=== PATIENT | female | born 1945 | race Caucasian/White ===

== ENCOUNTER 2016-10-07 09:42 | Outpatient (CLI) | payer MEDICARE, BC ==
[~2016-10-07 09:42] MED LIST: DEMEROL50 MG PO; MEDROL DOSE PACK4 MG PO; NITROSTAT0.4 MG SL; PEPCID20 MG PO; ROBAXIN-750750 MG PO; SOMA350 MG PO; SYNTHROID137 MCG PO
== END 2016-10-07 10:40 ==
LOC: D.MAMMO 09:42
DX: N63 Unspecified lump in breast (principal)

== ENCOUNTER → 2017-06-24 20:52 | Outpatient (CLI) | payer MEDICARE, BC | END | disposition home or self-care (01) | LOC: D.MAMMO 14:00 | DX: R92.8 Other abnormal and inconclusive findings on diagnostic imaging of breast (principal) ==

== ENCOUNTER 2018-06-02 09:10 | Day surgery (SDC) | payer MEDICARE, BC ==
[2018-06-01 10:03] LABS: HEMATOCRIT 43.4 % (36.0-48.0); HEMOGLOBIN 14.8 g/dL (12-16); MCH 32.1 pg (26.0-34.0); MCHC 34.1 g/dL (31.0-37.0); MCV 94.1 fL (80.0-100.0); MEAN PLATELET VOLUME 9.4 fL (7.4-10.4); RBC 4.61 10x6/uL (4.00-5.40); RDW 12.7 % (11.5-14.5)
[~2018-06-02] VITALS: Ht 167.6 cm; Wt 65.8 kg
[~2018-06-02 09:10] MED LIST changes: +CARAFATE1 G PO; +SOMA250 MG PO
[2018-06-02] MEDS ORDERED: PREVACID30 MG PO (10:13)
[2018-06-02 10:19] VITALS: BP 132/63; Ht 167.6 cm; Wt 65.8 kg
--- NOTE | 2018-06-30 17:49 | OP ---
PATIENT NAME: LAILA KRAFT MEDICAL RECORD: [id number] :43 LOCATION:[facility] ADMISSION DATE: SURGEON: AMERICA SANTOS DATE OF OPERATION: 06/02/2018 SURGEON: America Santos DPM PREOPERATIVE DIAGNOSES: 1. Hallux abductovalgus, right foot. 2. Hammertoe, second toe, right foot. 3. Tailor's bunion, right foot. POSTOPERATIVE DIAGNOSES: 1. Hallux abductovalgus, right foot. 2. Hammertoe, second toe, right foot. 3. Tailor's bunion, right foot. PROCEDURES: 1. Angel-Terrence bunionectomy, right foot. 2. Arthrodesis, proximal interphalangeal joint, second toe, right foot. 3. Reverse Angel bunionectomy, fifth metatarsal, right foot. ANESTHESIA: General. HEMOSTASIS: Pneumatic ankle tourniquet inflated to 250 mmHg. ESTIMATED BLOOD LOSS: Minimal. MATERIALS: One 2.5-mm headless Dart-Fire screw, one 9-mm Quick Staple, one 2.5 mm x 20 mm headless Dart-Fire screw, and one 2.0 x 12 mm headed Dart-Fire screw (all [employer]). INJECTABLES: A 32 cc of 0.5% bupivacaine plain. The patient has longstanding history of pain associated with the above-mentioned foot deformities. We have discussed the proposed procedures. Risks and benefits were discussed. Complications were reviewed. All questions were answered. She was appropriately consented for the above-mentioned procedures. DESCRIPTION OF PROCEDURE: The patient was brought into the operating room and placed on the operating table in a supine position. A time-out was called. Dr. Santos identified the patient, the surgical site, and surgery to be performed. Once appropriate anesthesia was obtained, the foot was prepped and draped in the usual aseptic manner. The pneumatic ankle tourniquet was inflated around the well-padded right ankle. PROCEDURE #1: Angel-Terrence bunionectomy, right foot. Attention was directed to the dorsal aspect of the first metatarsophalangeal joint, where a 6-cm linear incision was made just medial to the extensor hallucis longus tendon. This incision was carried deep to soft tissue with care being taken to retract all vital neurovascular structures. All bleeders were cauterized along the way. The first intermetatarsal space was entered through this incision. The conjoined tendon of the adductor hallucis muscle was identified at the base of the proximal phalanx and was sharply transected at this level. Attention was OPERATIVE REPORT [id number] ABENALAILA Edilson then directed further proximally to the level of the fibular sesamoidal ligament. The fibular sesamoidal ligament was then sharply transected with a #15 blade. Attention was then redirected to the dorsal aspect of the joint, where the periosteum was reflected from the first metatarsal head and the base of the proximal phalanx. The head of the first metatarsal was noted to be hypertrophied. Utilizing a sagittal saw, the hypertrophied medial eminence was removed. Next, a V-shaped osteotomy was created in the head of first metatarsal. This was a awzycoi-qdk-tlzsfef osteotomy with the apex oriented distally. The capital fragment was shifted laterally and impacted upon the first metatarsal shaft. Utilizing k 12 principal's recommended technique, one 2.5-mm screw was placed across the osteotomy. All overhanging bone from the medial aspect of the first metatarsal was removed with the bone saw. Attention was then directed to the base of the proximal phalanx, where a V-shaped osteotomy was created in the base of the toe with the apex oriented laterally. The wedge of bone was removed from the osteotomy. The osteotomy was reduced and one Quick Staple was placed across the osteotomy. Surgical site was then irrigated with copious amounts of normal sterile saline via bulb syringe. The periosteum was then reapproximated and coapted using 3-0 Vicryl. The subcutaneous was then reapproximated and coapted using 4-0 Vicryl. The skin was reapproximated and coapted using 4-0 nylon. PROCEDURE #2: Arthrodesis, second toe, right foot. Attention was directed to the dorsal aspect of the second toe of the right foot, where a 4-cm linear incision was made. This incision was carried deep to soft tissue with care being taken to retract all vital neurovascular structures. All bleeders were cauterized along the way. The extensor tendon was transected at the level of the proximal interphalangeal joint, thus exposing the head of the proximal phalanx and the proximal interphalangeal joint. All soft tissue attachments were freed from the head of the proximal phalanx and the head of the proximal phalanx was removed with a sagittal saw. All cartilage was removed from the base of the middle phalanx. Next, utilizing k 12 principal's recommended technique, one 2.5-mm screw was placed across the arthrodesis site. The toe was noted to rest in a more rectus position after placement of the screw. The surgical site was then irrigated with copious amounts of normal sterile saline. The extensor tendon was then reapproximated and coapted using 3-0 Vicryl. The subcutaneous was then reapproximated and coapted using 4-0 Vicryl. The skin was reapproximated and coapted using 4-0 nylon. PROCEDURE #3: Tailor's bunionectomy, right foot. Attention was directed to the lateral aspect of the right foot, where a 5-cm linear incision was made just over the head of the fifth metatarsal. This incision was carried deep to soft tissue with care being taken to retract all vital neurovascular structures. All bleeders were cauterized along the way. The periosteum was then reflected from the head of the fifth metatarsal, thus exposing the hypertrophied lateral eminence. Utilizing the sagittal saw, the hypertrophied bone was removed. Next, a V-shaped osteotomy was created in the head of the fifth metatarsal. This was a fwkbufv-jvf-khbpwig osteotomy with the apex oriented distally. The capital fragment was then shifted medially and impacted upon the fifth metatarsal shaft. OPERATIVE REPORT [id number] LAILA KRAFT Next, utilizing k 12 principal's recommended technique, one 2.5-mm screw was placed across the osteotomy. All remaining overhanging bone from the lateral aspect of the fifth metatarsal shaft was removed with a bone saw. Surgical site was then irrigated with copious amounts of normal sterile saline via bulb syringe. The periosteum was then reapproximated and coapted using 3-0 Vicryl. The subcutaneous was then reapproximated and coapted using 4-0 Vicryl. The skin was reapproximated and coapted using 4-0 nylon. Dressing consisting of Xeroform, 4 x 4's, Kerlix, and Cedric bandage was applied to the surgical sites. The pneumatic ankle tourniquet was deflated and cap refill time was immediate to all digits of the right foot. The patient tolerated the procedure and the anesthesia well. She left the operating with vital signs stable and cap refill time intact. The patient will be discharged home with instructions to ice and elevate the foot. She has a boot to further offload the foot. She has my cell phone number for any afterhours troubles and there were no difficulties with these procedures. We will follow up with her next week. TRANSINT:[id number] Voice Confirmation ID: [id number] DOCUMENT ID: [id number] AMERICA SANTOS at 1749 CC: [id number] DICTATION DATE: 06/02/18 1424 SUPERVISOR COLD ROLLING: 06/02/18 1604 [facility] 06/02/18 [id number] [place] [address]
== END 2018-06-02 17:30 | disposition home or self-care (01) ==
LOC: D.OPS 09:10 → D.PAN 11:30 → D.OPS 11:30
PROVIDERS: Anesthesiology
DX: M20.11 Hallux valgus (acquired), right foot (principal); M20.41 Other hammer toe(s) (acquired), right foot; M21.621 Bunionette of right foot; Z88.5 Allergy status to narcotic agent; Z88.0 Allergy status to penicillin; Z88.2 Allergy status to sulfonamides; Z96.659 Presence of unspecified artificial knee joint; M19.90 Unspecified osteoarthritis, unspecified site; M79.7 Fibromyalgia; Z01.812 Encounter for preprocedural laboratory examination

== ENCOUNTER 2018-11-14 12:39 | Emergency (ER) | payer MEDICARE, BC ==
[~2018-11-14] VITALS: Ht 167.6 cm; Wt 63.6 kg
[~2018-11-14 12:39] MED LIST changes: +PREVACID30 MG PO
[2018-11-14 13:38] LABS: APTT 29.2 SECONDS (22.8-39.4); INR 1.01 (0.85-1.17); PROTIME 12.8 SECONDS (11.6-15.0)
[2018-11-14 13:43] LABS: ALBUMIN 3.7 g/dL (3.4-5.0); ALKALINE PHOSPHATASE 75 U/L (46-116); ALT (SGPT) 41 U/L (10-68); BILIRUBIN - TOTAL 0.32 mg/dL (0.2-1.3); CALC OSMOLALITY 283 mosm/kg (275-300); CALCIUM 8.9 mg/dL (8.5-10.1); CARBON DIOXIDE 28.8 mmol/L (21.0-32.0); CHLORIDE - SERUM 106 mmol/L (98-107); CREATININE - SERUM 1.2 mg/dL (0.6-1.3); GLUCOSE 85 mg/dL (74-106); PROTEIN - SERUM 6.9 g/dL (6.4-8.2); SODIUM 141 mmol/L (136-145); UREA NITROGEN 23 mg/dL (7-18); eGFR NON AFRICAN AMERICAN 46 mL/min (90-120)
[2018-11-14 13:55] LABS: CKMB 4.9 U/L (0.0-3.6); CREATINE KINASE 246 UL (21-215); MAGNESIUM - SERUM 2.1 mg/dL (1.8-2.4)
[2018-11-14 13:56] LABS: BASOPHILS 0.2 % (0-2); EOSINOPHILS 1.9 % (0-7); HEMATOCRIT 42.3 % (36.0-48.0); HEMOGLOBIN 14.7 g/dL (12-16); IMMATURE GRANULOCYTES 0.2 % (0-5); LYMPHOCYTES 18.4 % (15-50); MCHC 34.8 g/dL (31.0-37.0); MEAN PLATELET VOLUME 9.6 fL (7.4-10.4); NEUTROPHILS 74.3 % (40-80); PLATELET COUNT 257 10x3/uL (130-400); RDW 12.5 % (11.5-14.5); WBC 5.2 10x3/uL (4.8-10.8)
[2018-11-14 13:57] LABS: TROPONIN-I < 0.017 ng/mL (0.000-0.060)
[2018-11-14 14:02] VITALS: BP 147/67
[2018-11-14 14:55] VITALS: BP 174/79
--- NOTE | 2018-11-14 16:30 | NUR ---
PT STATES, 'DR COSBY TOLD ME FROM HIS STAND POINT I AM GOOD TO GO HOME" EXPL THE PROCESS THAT SHE IS ADMITTED TO DR FREED. DR HERNANDEZ COVERING FOR DR FREED THIS AFTERNOON. PT STATES "I DONT WANT TO STAY THE NIGHT." EXPL I CAN NOT DISCHARGE HER UNTIL DR HERNANDEZ OR DR FREED DISCHARGE HER. SHE VERB SHE WOULD LEAVE AMA. I CALLED AND SPOKE WITH DR HERNANDEZ AND EXPL ABOVE. DR HERNANDEZ SAYS HE CANNOT COME SEE PT UNTIL HE IS OUT OF CLINIC AROUND 1730 EXPL THIS TO PT AND SHE AGREED TO STAY
[2018-11-14 17:00] VITALS: BP 155/68
--- NOTE | 2018-11-14 18:08 | NUR ---
DR HERNANDEZ AT
[2018-11-14 18:26] VITALS: Ht 167.6 cm; Wt 63.6 kg
[2018-11-14 18:30] VITALS: BP 148/64
--- NOTE | 2018-11-14 18:30 | NUR ---
DISCHARGED IMPROVED. AMB OUT WITH S/O WITH INSTR VERB UNDER
--- NOTE | 2018-11-14 18:39 | CN ---
PATIENT NAME:LAILA BUSCH MEDICAL RECORD: [id number] : 43 LOCATION:[facility] D.2119 ADMIT DATE: 11/14/18 ACCOUNT: [id number] CONSULTING PHYSICIAN: EMA COSBY MD REFERRING PHYSICIAN: DENNIS FREED MD DATE OF CONSULTATION: 11/14/2018 CARDIOLOGY CONSULTATION DIAGNOSES: 1. Chest pain. 2. Gastroesophageal reflux disease. HISTORY OF PRESENT ILLNESS: Mrs. Busch presents with 5 minutes of chest pain, it was quite severe, centered in her mid sternal area. She has a significant history of GERD as well for which she is on Pepcid and Prevacid. She recently has lost 2 children and is under a lot of stress due to that. She had a normal cardiac catheterization a little over 2 years ago. Her EKG is normal. Troponin is normal. PHYSICAL EXAMINATION: GENERAL APPEARANCE: Well-nourished, well-developed, appears stated age. Level of distress, comfortable. PSYCHIATRIC: Mental status, alert, normal affect. Orientation, oriented to time, place and person. EYES: Lids and conjunctiva, noninjected. No discharge, no pallor. ENT: Lips, teeth, gums, normal dentition. Oropharynx, no cyanosis, no pallor. NECK: Carotid arteries, bilateral normal upstroke, no bruits, no thrills. JUGULAR VEINS: No jugular venous pressure or distention. CERVICAL LYMPH NODES: Nontender, nonenlarged. THYROID: Not enlarged. Nontender. No nodules. LUNGS: Respiratory effort, unlabored. CHEST: Normal curvature. No thoracic deformity. No chest wall tenderness. Percussion, resonant. Auscultation, clear. No wheezes, no rales, no rhonchi. CARDIOVASCULAR: Precordial exam, nondisplaced. No heaves or pericardial thrills. Rate and rhythm, regular. Heart sounds, normal S1, normal S2. No S3, no gallop, no rub. Systolic murmur, not heard. Diastolic murmur, not heard. EXTREMITIES: No cyanosis, no edema. Peripheral pulses, full and equal in all extremities, except as noted. No bruits appreciated. ABDOMEN: Soft, nondistended. Normal aorta. No bruit. Nontender. No masses. Liver, nontender, no hepatomegaly. Spleen, nontender, no splenomegaly. MUSCULOSKELETAL: No joint tenderness. No joint swelling. No erythema. NEUROLOGICAL: Normal gait, normal strength, normal tone. SKIN: Warm and dry. OVERALL IMPRESSION: Chest pain with history of GERD, normal cardiac catheterization little over 2 years ago with a normal EKG, normal troponin. This is not cardiac. No other cardiac workup or treatment testing needs to be undertaken at this time. TRANSINT:[id number] Voice Confirmation ID: [id number] DOCUMENT ID: [id number] CONSULT REPORT [id number] LAILA BUSCH, EMA LLOYD at 1839 CC: [id number] DICTATION DATE: 11/14/18 1543 HAMMER ADJUSTER: 11/14/18 1636 ADM [id number] [place] [address]
== END 2018-11-14 18:30 | disposition other institution (70) ==
LOC: OBSVTIME → D.ER 12:39 → OBSVTIME 18:23 → D.ER 18:23 → D.M2 18:23
PROVIDERS: Family Medicine
DX: R07.9 Chest pain, unspecified (principal); F43.21 Adjustment disorder with depressed mood; K21.9 Gastro-esophageal reflux disease without esophagitis